=== PATIENT | female | born 1985 ===

== ENCOUNTER 2017-11-27 12:26 | Inpatient (IN) | payer OTHER ==
[~2017-11-27] VITALS: Ht 170.2 cm; Wt 68.5 kg
[2017-12-21] MEDS ORDERED: PRENATAL TABLE1 EAC1 PO (19:24)
== END 2017-12-24 11:44 | DRG 775 ==
LOC: OB/GYN 12-21 19:22 → LDR 12-21 19:22 → OB/GYN 12-22 11:24 → LDR 12-24 13:30
PROC: 4A1HXCZ Monitoring of Products of Conception, Cardiac Rate, External Approach (ICD-10-PCS; 2017-12-21)
PROC: 10E0XZZ Delivery of Products of Conception, External Approach (ICD-10-PCS; principal; 2017-12-22)
PROC: 0DQR0ZZ Repair Anal Sphincter, Open Approach (ICD-10-PCS; 2017-12-22)
PROC: 0W8NXZZ Division of Female Perineum, External Approach (ICD-10-PCS; 2017-12-22)
PROC: 4A033R1 Measurement of Arterial Saturation, Peripheral, Percutaneous Approach (ICD-10-PCS; 2017-12-22)
DX: O70.21 Third degree perineal laceration during delivery, IIIa (principal); Z3A.39 39 weeks gestation of pregnancy; Z37.0 Single live birth; O42.92 Full-term premature rupture of membranes, unspecified as to length of time between rupture and onset of labor

== ENCOUNTER 2017-12-19 10:39 | Outpatient (CLI) | payer OTHER | END 2017-12-19 11:17 | disposition home or self-care (01) | LOC: NST 10:39 | DX: Z34.03 Encounter for supervision of normal first pregnancy, third trimester (principal) ==